=== PATIENT | female | born 1955 ===

== ENCOUNTER 2022-06-04 01:00 | Emergency (ER) ==
[2022-07-17 08:24] LABS: ESTIMATED GFR 81 mL/min (>60)
[2022-07-17 08:26] LABS: CORONAVIRUS COVID-19 NAA POSITIVE (NEGATIVE)
== END 2022-06-04 17:00 | disposition home or self-care (01) ==
LOC: JD.ED 01:00
DX: U07.1 COVID-19 (principal); Z88.8 Allergy status to other drugs, medicaments and biological substances; Z85.850 Personal history of malignant neoplasm of thyroid
CPT/HCPCS: 0240U; 36415; 71045; 71045-26; 80053; 84443; 84484; 85025; 85610; 85730; 86140; 99285